=== PATIENT | male | born 1965 | race Caucasian/White ===

== ENCOUNTER 2016-03-09 19:17 | Emergency (ER) | payer BC ==
[2016-03-09] MEDS ORDERED: LISINOPRIL10 MG PO (19:29)
[2016-03-09] MEDS ORDERED: MEN'S BIOMULTI1 EACH PO (19:30)
[2016-03-09] MEDS ORDERED: DHA PO (19:30)
[2016-03-09] MEDS ORDERED: OMEPRAZOLE D/R20 MG PO (19:31)
[2016-03-09 20:45] VITALS: BP 164/102
== END 2016-03-09 20:45 | disposition short-term general hospital (02) ==
LOC: ED 19:17
DX: I21.4 Non-ST elevation (NSTEMI) myocardial infarction (principal); Z79.82 Long term (current) use of aspirin
CPT/HCPCS: J1644; J2270

== ENCOUNTER 2016-03-20 15:29 | Outpatient (RCR) | payer BC ==
[~2016-03-20 15:29] MED LIST: DHA PO; LISINOPRIL10 MG PO; MEN'S BIOMULTI1 EACH PO; OMEPRAZOLE D/R20 MG PO
== END 2016-06-18 | disposition home or self-care (01) ==
LOC: CARDREHAB
DX: Z48.812 Encounter for surgical aftercare following surgery on the circulatory system (principal); Z95.5 Presence of coronary angioplasty implant and graft; I21.4 Non-ST elevation (NSTEMI) myocardial infarction

== ENCOUNTER → 2022-01-21 | Outpatient (CLI) | payer BC ==
[~2022-01-21] MED LIST changes: +ASPIR LOW81 MG; +ATORVASTATIN CA80 MG; +CLOPIDOGREL75 M1; +NORCO 325 MG-51 TA1 PO; +VALSARTAN160 M1
[2022-01-21 10:24] LABS: POTASSIUM 3.5 mmol/L (3.5-5.1)
[2022-01-21 10:25] LABS: CALCIUM 9.9 mg/dL (8.3-10.5)
[2022-01-21 10:26] LABS: TOTAL PROTEIN 7.9 g/dL (6.4-8.3)
[2022-01-21 10:28] LABS: TOTAL BILIRUBIN 0.5 mg/dL (0.2-1.2)
== END ==
LOC: LAB 08:58
PROVIDERS: Family Medicine
DX: Z00.00 Encounter for general adult medical examination without abnormal findings (principal); Z48.812 Encounter for surgical aftercare following surgery on the circulatory system; Z13.1 Encounter for screening for diabetes mellitus; R30.0 Dysuria; R10.11 Right upper quadrant pain

== ENCOUNTER → 2023-07-05 | Outpatient (REF) | payer BC | LOC: LAB 08:03 | DX: R05.9 Cough, unspecified (principal) ==